=== PATIENT | female | born 1975 | race Caucasian/White ===

== ENCOUNTER 2018-06-24 18:21 | Outpatient (CLI) | payer OTHER ==
--- NOTE | 2018-06-24 23:10 | Ultrasound Report ---
FINAL REPORT PROCEDURE: US OB BPP WO NON-STRESS TECHNIQUE: Sonographic evaluation for breathing, movement, tone, and amniotic fluid volume was performed. CPT 27967 HISTORY: wellbeing COMPARISON: No prior studies are available for comparison. FINDINGS: Amniotic fluid volume: Normal-score 2. At least one vertical pocket > 2 cm or more in vertical axis. breathing: Normal-score 2. movement: Normal-score 2. tone: Normal. Score: 8 of 8. IMPRESSION: Normal biophysical profile.
--- NOTE | 2018-06-24 23:14 | Ultrasound Report ---
FINAL REPORT PROCEDURE: US OB FOLLOW UP TECHNIQUE: Real-time limited sonographic examination was performed for evaluation of size, position, heartbeat, fluid volume for each fetus with image documentation (1 or more fetuses). CPT 66454 HISTORY: wellbeing COMPARISON: No prior studies are available for comparison. FINDINGS: FETUS IUP: Single living intrauterine . Position: Vertex. Amniotic fluid volume: Normal . Heart rate and rhythm: 138 BPM, Regular . MEASUREMENTS BPD: 9.6 centimeter. HC: 35.1 centimeter. AC: 33.9 centimeter. FL: 7.2 centimeters. Mean Gestational Age (composite criteria): 38 weeks 5 days. Ratio biometry: Normal . Estimated Weight: 3389 grams. Interval growth: Appropriate . Estimated Due Date (earliest scan): 07/03/2018. IMPRESSION: 1. Single living intrauterine gestation at approximately 38 weeks 5 days. 2. EDC by US 07/03/2018.
[2018-06-28 09:16] VITALS: BP 114/67
== END 2018-06-24 23:15 | disposition home or self-care (01) ==
LOC: TRG 18:21
PROVIDERS: ATTEND Obstetrics & Gynecology
DX: O47.03 False labor before 37 completed weeks of gestation, third trimester (principal); Z3A.38 38 weeks gestation of pregnancy
CPT/HCPCS: 59025; 76816; 76819